=== PATIENT | female | born 1965 | race Caucasian/White ===

== ENCOUNTER 2020-07-27 02:20 | Outpatient (CLI) | payer OTHER, SELFPAY ==
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
--- OUTSIDE RECORDS SUMMARY | 2020-07-27 02:22 | XMS_ITS ---
:1965 External Reference #:[id number] Author Care Team Providers Name Role Phone Gutierrez Primary Care Provider Unavailable Allergies None recorded. Medications Name Status Start Date Stop Date ? ? azithromycin 250 mg tablet Active ? Not a vailable Problems Name Status Onset Date Source ? Hyperlipidemia Active 07/23/2020 ? Anxiety Active 07/23/2020 ? Carpal Tunnel Syndrome Active 07/23/2020 ? Fatigue Active 07/23/2020 ? Tachycardia Active 07/23/2020 ? Palpitations Active 07/23/2020 ? On Examination - Carotid Bruit Active 07/23/2020 ? Hyperlipidemia Screening Active 07/23/2020 ? Procedures Date Name Performed by ? 07/21/2020 US, Coronary Artery Xray [facility] [address] [place], [place] [address] (Work Place) 07/21/2020 Electrocardiogram Xray [facility] [address] [place], [place] [address] (Work Place) Results Lab Results None recorded. Past Encounters 07/21/2020 Fatigue; Palpitations; Hyperlipidemia; H yperlipidemia Screening; On Examination - Carotid Bruit; Tachycardia; Anxiety Mora Whitley, [place]: [address] [place] [address], Ph. [phone] Social History None recorded. Vaccine List None recorded. Plan of Care Patient Instructions 1. vitex blend- blk cohmarietta sheeba, le jaun horne leonalex cadiaca- dong quai 2. complete multi 2 cap 2xday 3. [place] Hormone- follow- instructions- carefully 4. MEgasporebiotic follow instructions o n bottle- 5. Call for appt at laba nd try to coord inate for ECG and carotid Ultrasound appts Reminders Provider Appointments None recorded. ? ? Lab None recorded. ? ? Referral None recorded. ? ? Procedures None recorded. ? ? Surgeries None recorded. ? ? Imaging None recorded. ? ? Vitals Height Weight BMI Blood Pressure 5 ft 3 in 181 lbs 16 oz 32.2 kg/m2 146/80 mm[Hg]
[2020-07-27 09:17] LABS: Absolute Basophil Count 0.01 10^3/uL (0.0-0.2); Absolute Eosinophil Count 0.07 10^3/uL (0.0-0.7); Absolute Lymphocyte Count 1.69 10^3/uL (1.2-3.4); Absolute Monocyte Count 0.27 10^3/uL (0.1-0.8); Absolute Neutrophil Count 1.07 10^3/uL (1.2-6.7); Basophils % 0.3; Eosinophils % 2.3; HCT 40.9 % (36.0-46.0); HGB 13.7 g/dL (11.2-15.7); Lymphocytes % 54.3; MCH 27.7 pg (27.0-33.0); MCHC 33.5 % (32.0-36.0); MCV 82.8 fL (80-95); MPV 9.8 fL (8.0-11.0); Monocytes % 8.7; Neutrophils % 34.4; Nucleated RBC 0 %; Platelet Count 218 10^3/uL (130-400); RBC 4.94 10^6/uL (3.93-5.22); RDW 11.6 % (11.7-14.6); RDW-SD 34.9 fL; WBC 3.11 10^3/uL (4.4-10.8)
[2020-07-27 09:48] LABS: Iron 77 ug/dL (50-170); Total Iron Binding Capacity 293 ug/dL (250-450); Transferrin Sat 26 % (15-50)
[2020-07-27 09:52] LABS: Hemoglobin A1C 5.4 % (<5.7)
[2020-07-27 10:15] LABS: ALT 66 U/L (14-59); AST 25 U/L (15-37); Albumin 3.7 g/dL (3.4-5.0); Alkaline Phosphatase 62 U/L (46-116); Anion Gap 8.2 mmol/L (3-11); BUN 10 mg/dL (7-18); Bilirubin, Total 0.5 mg/dL (0.2-1.0); CO2 28.8 mmol/L (21.0-32.0); CREATININE 0.57 mg/dL (0.55-1.02); Calcium 9.7 mg/dL (8.5-10.1); Calculated LDL 96 mg/dL (<100); Chloride 106 mmol/L (98-107); Cholesterol 171 mg/dL (<200); Ferritin 121 ng/mL (8-252); Glucose 116 mg/dL (74-106); HDL Cholesterol 64 mg/dL (40-60); Magnesium 1.6 mg/dL (1.8-2.4); Potassium 3.9 mmol/L (3.5-5.1); Sodium 143 mmol/L (136-145); Total Protein 6.6 g/dL (6.4-8.2); Triglyceride 58 mg/dL (<150); Vitamin B12 473 pg/mL (193-986)
[2020-07-27 10:28] LABS: Folate > 20.0 ng/mL (8.6-20.0); TSH < 0.01 uIU/mL (0.36-3.74)
[2020-07-27 10:47] LABS: FREE T4 3.79 ng/dL (0.76-1.46)
[2020-07-27 17:10] LABS: T3,Free 22.7 pg/mL (2.8-5.3)
[2020-07-27 17:20] LABS: CRP, High Sensitivity 0.35 mg/L (See Note)
[2020-07-27 17:27] LABS: T3, Total 484 ng/dL (97-169)
[2020-07-27 18:43] LABS: Thyroglobulin Antibody >500 U/mL (<=60); Thyroperoxidase Antibody >1300 U/mL (<=60)
[2020-07-28 15:21] LABS: Lipoprotein (a) <6 mg/dL (<=30)
== END 2020-07-27 02:40 ==
PROVIDERS: PCP Naturopath; Visit Provider Naturopath
DX: R53.83 Other fatigue (principal); R00.2 Palpitations; Z13.220 Encounter for screening for lipoid disorders; Z13.1 Encounter for screening for diabetes mellitus
CPT/HCPCS: 36415; 80053; 80061; 83090; 83695; 86141; 82607; 82728; 82746; 83036; 83540; 83550; 83735; 84439; 84443; 84480; 84481; 85025; 86140; 86376; 86800

== ENCOUNTER 2020-07-27 03:16 | Outpatient (CLI) | payer OTHER, SELFPAY ==
--- NOTE | 2020-07-27 09:00 | RT.EKG_ITS ---
APPROVED REPORT Exam: Resting ECG Patient Location: O HR:128 bpm ECG Measurements Heart Rate 128 AXIS CO 122 P 70 QRSd 81 QRS -20 QT 305 T 61 QTc 446 Conclusion Sinus tachycardia...rate> 99 Probable left atrial enlargement...P >50mS, <-0.10mV V1 Probable left ventricular hypertrophy...multiple LVH criteria
== END 2020-07-27 03:36 ==
PROVIDERS: PCP Naturopath; Visit Provider Naturopath
DX: R00.0 Tachycardia, unspecified (principal)
CPT/HCPCS: 93005; 93010

== ENCOUNTER 2020-08-04 01:14 | Outpatient (CLI) | payer OTHER, SELFPAY ==
--- NOTE | 2020-08-04 | DI.US_ITS ---
EXAM: US CAROTID CLINICAL HISTORY: CAROTID BRUIT,R09.89. TECHNIQUE: Ultrasound carotids performed using grayscale, color-flow, and spectral Doppler imaging. COMPARISON: No exams were available for comparison FINDINGS: RIGHT CAROTID ARTERY: Plaque: Minimal. Velocity elevation: See below LEFT CAROTID ARTERY: Plaque: Minimal. Velocity elevation: See below VERTEBRAL ARTERIES: Antegrade flow. Measurements: R Bulb: 56.2cm/s PS / 18.2cm/s ED R CCA: 155cm/s PS / 60.2cm/s ED R ECA: PS / ED R ICA Prox: 135.1cm/s PS /42.6cm/s ED R ICA Mid: 112.15cm/s PS / 52.8cm/s ED R ICA Distal: 79.8cm/s PS /30.1cm/s ED R Vert: 61.7cm/s PS / 19.9cm/s ED R SVR: 0.87 R DVR: 0.71 L Bulb: 138.8cm/s PS /53.5cm/s ED L CCA: 149.2cm/s PS / 60.2cm/s ED L ECA: PS / ED L ICA Prox:170.6cm/s PS / 46.3cm/s ED L ICA Mid: 138.23cm/sPS / 56.8cm/s ED L ICA Distal: 144.6cm/s PS / 69.4cm/s ED L Vert: 59.5cm/s PS / 21.5cm/s ED L SVR: 1.14 L DVR: 0.77 IMPRESSION: There is minimal plaque. The the internal carotid arteries are tortuous, likely causing the velocity elevations.. Criteria for Carotid Stenosis: Normal: ICA PSV <125 cm/s no plaque or intimal thickening is visible. <50% stenosis: ICA PSV <125 cm/s and plaque or intimal thickening is visible. 50-69% stenosis: ICA PSV is 125-250 cm/s and plaque is visible. >70% stenosis to near occlusion: ICA PSV >250 cm/s with visible plaque and luminal narrowing. DATA REPOSITORY:
== END 2020-08-04 01:34 ==
PROVIDERS: PCP Naturopath; Visit Provider Naturopath
DX: R09.89 Other specified symptoms and signs involving the circulatory and respiratory systems (principal)
CPT/HCPCS: 93880

== ENCOUNTER 2020-08-06 13:44 | Emergency (ER) | payer OTHER, SELFPAY ==
--- NOTE | 2020-08-06 13:45 | RT.EKG_ITS ---
APPROVED REPORT Exam: Resting ECG Patient Location: E HR:120 bpm ECG Measurements Heart Rate 120 AXIS MO 141 P 62 QRSd 84 QRS -14 QT 318 T 38 QTc 450 Conclusion Sinus tachycardia...rate> 99
[2020-08-06 13:48] VITALS: BP 170/91; PULSE 126; RESP 18; TEMP 36.8; O2SAT 99
[2020-08-06 14:18] LABS: Absolute Basophil Count 0.01 10^3/uL (0.0-0.2); Absolute Eosinophil Count 0.11 10^3/uL (0.0-0.7); Absolute Lymphocyte Count 2.03 10^3/uL (1.2-3.4); Absolute Monocyte Count 0.29 10^3/uL (0.1-0.8); Absolute Neutrophil Count 1.11 10^3/uL (1.2-6.7); Basophils % 0.3; Eosinophils % 3.1; HCT 41.4 % (36.0-46.0); HGB 13.6 g/dL (11.2-15.7); Lymphocytes % 57.2; MCH 27.6 pg (27.0-33.0); MCHC 32.9 % (32.0-36.0); MPV 9.5 fL (8.0-11.0); Monocytes % 8.2; Neutrophils % 31.2; Nucleated RBC 0 %; Platelet Count 188 10^3/uL (130-400); RBC 4.93 10^6/uL (3.93-5.22); RDW 11.4 % (11.7-14.6); RDW-SD 34.8 fL; WBC 3.55 10^3/uL (4.4-10.8)
[2020-08-06] MEDS: Normal Saline 1,000 ML 1000 ML IV (14:30)
[2020-08-06 14:39] LABS: ALT 128 U/L (14-59); AST 41 U/L (15-37); Albumin 3.5 g/dL (3.4-5.0); Alkaline Phosphatase 70 U/L (46-116); Anion Gap 8.9 mmol/L (3-11); BUN 8 mg/dL (7-18); Bilirubin, Total 0.3 mg/dL (0.2-1.0); CO2 28.1 mmol/L (21.0-32.0); CREATININE 0.56 mg/dL (0.55-1.02); Calcium 9.2 mg/dL (8.5-10.1); Chloride 105 mmol/L (98-107); Glucose 116 mg/dL (74-106); Magnesium 1.7 mg/dL (1.8-2.4); Potassium 3.7 mmol/L (3.5-5.1); Sodium 142 mmol/L (136-145); Total Protein 6.6 g/dL (6.4-8.2)
[2020-08-06 14:42] LABS: Troponin I < 0.05 ng/mL (<0.06)
[2020-08-06 14:43] VITALS: RESP 17
[2020-08-06 14:46] LABS: TSH (W/Ref FT4) < 0.01 uIU/mL (0.36-3.74)
[2020-08-06 15:02] LABS: FREE T4 2.44 ng/dL (0.76-1.46)
--- NOTE | 2020-08-06 15:05 | ED.GENADUL_ITS ---
Discharge Plan Disposition Patient Disposition: HOME Condition: Stable Discharge Details Clinical Impression: Hyperthyroidism Primary Care Provider: Mora Whitley ED Provider: Fernando Kathleen Home Meds and New Rx's Prescriptions: New methimazole 10 mg tablet 10 mg PO DAILY Qty: 30 RF: 0 metoprolol succinate 25 mg tablet extended release 24 hr 25 mg PO DAILY Qty: 30 RF: 0 Continued ascorbic acid (vitamin C) [Vitamin C] 500 mg Tablet 500 mg PO DAILY RF: 0 ergocalciferol (vitamin D2) 1,000 unit Capsule 2,000 unit PO DAILY RF: 0 Sporbiotic 1 ea PO DAILY RF: 0 omega-3 fatty acids Capsule 1 cap PO DAILY RF: 0 Discharge Instructions Instructions: Methimazole (By mouth), Hyperthyroidism (ED) Additional Instructions: Please take methimazole and metoprolol as prescribed. Please follow-up with endocrinology. Please contact your primary care physician to arrange follow-up. Return to the ER immediately for any worsening or new concerning symptoms including fever, sore throat, or symptoms of infection. Referrals: Mora Whitley [Primary Care Provider] - Medical Decision Making 55-year-old female here with 3 months of intermittent palpitations, found to have hyperthyroidism by naturopathic doctor, here with tachycardia and a heart rate in the 110s-120s, normotensive. Labs to confirm hyperthyroidism reviewed and patient has low TSH and elevated free T4 of 2.44. I reviewed past medical record and patient had an elevated free T3 of 22.7, total T3 of 44 on 07/27/20, thyroperoxidase antibody greater than 1300, thyroglobulin antibody greater than 500. I called and spoke with building construction estimator data entry supervisor at [facility], discussed ED presentation and course, discussed labs today and recent outpatient labs, she recommended starting methimazole 10 mg daily and metoprolol 25 mg XR daily and have her follow-up in clinic as scheduled. HPI General Mode of arrival: ambulatory . Date/Time Provider Initiated Documentation: 08/06/20 13:47 . Limitations to Documentation: no limitations . Information obtained by: patient . HPI Narrative: 55-year-old female with h istory of anxiety disorder, recently experiencing palpitations over the past few months and recently diagnosed by her research associate quality control qc with hyperthyroidism. Patient has follow-up scheduled with endocrinology in 2 weeks at [facility]. She presents today at the prompting of her research associate quality control qc questioning the need for pharmacologic treatment. Her research associate quality control qc is unable to prescribe medications. Patient denies chest pain or shortness of breath. Her palpitations are moderate, intermittent but persistent over the past few months and feel like her heart is racing. Related Data Home Medications Medication Instructions Recorded Confirmed Sporbiotic 1 ea PO DAILY 08/06/20 08/06/20 ascorbic acid (vitamin C) [Vitamin 500 mg PO DAILY 08/06/20 08/06/20 C] ergocalciferol (vitamin D2) 2,000 unit PO DAILY 08/06/20 08/06/20 methimazole 10 mg PO DAILY #30 tab 08/06/20 metoprolol succinate 25 mg PO DAILY #30 tab 08/06/20 omega-3 fatty acids 1 cap PO DAILY 08/06/20 08/06/20 Previous Rx's Medication Instructions Recorded methimazole 10 mg PO DAILY #30 tab 08/06/20 metoprolol succinate 25 mg PO DAILY #30 tab 08/06/20 Allergies Allergy/AdvReac Type Severity Reaction Status Date / Time cephalexin [From Keflex] AdvReac Intermediate feels like Unverified 08/06/20 13:53 head cold/allergy codeine AdvReac Intermediate passes out Unverified 08/06/20 13:53 General Stated Complaint: GenMedical RIK: 3 Review of Systems All systems reviewed & are unremarkable except as noted in HPI and below Constitutional Constitutional: Denies fever(s) and Denies headache(s) ENT Ears, Nose, Mouth, and Throat: Denies headache(s) Cardiovascular Cardiovascular: Denies chest pain and Denies dyspnea Respiratory Respiratory: Reports as per HPI and Denies dyspnea Gastrointestinal Gastrointestinal: Denies nausea and Denies vomiting Neurologic Neurologic: Denies headache(s) [facility] Social History Smoking/Tobacco Use Status: Former Tobacco Use Smoking risk assessment performed?: Yes Alcohol Intake: current Alcohol Intake frequency: a few times a week Substance use type: does not use Details: cigs in high school Do you feel safe at home: Yes Do you feel safe in your relationship?: Yes Exam Const General: cooperative and no acute distress HENMT Head: normocephalic Mouth: moist mucous membranes Eyes Conjunctivae: normal conjunctivae Sclera: normal sclerae Neck Neck: trachea midline and supple Thyroid: diffusely enlarged, no masses, nontender and no warm Resp Auscultation: clear to auscultation bilaterally, no rales, no rhonchi and no wheezes Cardio Rate: tachycardic Rhythm: regular rhythm GI Palpation: soft, not firm, no guarding, no masses, not rigid and nontender Skin General skin exam: no rashes or lesions noted Neuro General: patient alert, patient awake, patient oriented x3 and tone normal Extrem General: no edema Psych Appearance: grossly normal Mental Status: mental status grossly normal Speech and Movement: speech and movement normal Course Vital Signs Vital signs: Vital Signs Temperature 36.8 C 08/06/20 13:48 Pulse 126 H 08/06/20 13:48 Respiratory Rate 18 08/06/20 13:48 Blood Pressure 170/91 H 08/06/20 13:48 Pulse Oximetry 99 08/06/20 13:48 Temperature 36.8 C 08/06/20 13:48 Temperature Source Skin 08/06/20 13:48 Pulse 126 H 08/06/20 13:48 Respiratory Rate 17 08/06/20 14:43 Respiratory Effort Non-Labored 08/06/20 14:43 Respiratory Depth Normal 08/06/20 14:43 Respiratory Pattern Normal 08/06/20 14:43 Blood Pressure 170/91 H 08/06/20 13:48 Blood Pressure Position Sitting 08/06/20 13:48 Pulse Oximetry 99 08/06/20 13:48 Oxygen Delivery Method Room Air 08/06/20 13:48 Oxygen Flow Rate 0 08/06/20 13:48 Pain Level 0 08/06/20 13:48 Lab/Test Results Lab/Test Results: Laboratory Tests Range/Units 08/06/20 08/06/20 14:05 14:05 WBC (4.4-10.8) 10^3/uL 3.55 L RBC (3.93-5.22) 10^6/uL 4.93 Hgb (11.2-15.7) g/dL 13.6 Hct (36.0-46.0) % 41.4 MCV (80-95) fL 84.0 MCH (27.0-33.0) pg 27.6 MCHC (32.0-36.0) % 32.9 RDW (11.7-14.6) % 11.4 L Plt Count (130-400) 10^3/uL 188 MPV (8.0-11.0) fL 9.5 Immature Gran % 0.0 Neutrophils % 31.2 Lymphocytes % 57.2 Monocytes % 8.2 Eosinophils % 3.1 Basophils % 0.3 Nucleated RBC % % 0 Absolute Neutrophils (1.2-6.7) 10^3/uL 1.11 L Absolute Lymphocytes (1.2-3.4) 10^3/uL 2.03 Absolute Monocytes (0.1-0.8) 10^3/uL 0.29 Absolute Eosinophils (0.0-0.7) 10^3/uL 0.11 Absolute Basophils (0.0-0.2) 10^3/uL 0.01 Sodium (136-145) mmol/L 142 Potassium (3.5-5.1) mmol/L 3.7 Chloride (98-107) mmol/L 105 Carbon Dioxide (21.0-32.0) mmol/L 28.1 Anion Gap (3-11) mmol/L 8.9 BUN (7-18) mg/dL 8 Creatinine (0.55-1.02) mg/dL 0.56 Estimated GFR/1.73 m2 (mL/min/1.73m2) >= 60.00 Glucose (74-106) mg/dL 116 H Calcium (8.5-10.1) mg/dL 9.2 Magnesium (1.8-2.4) mg/dL 1.7 L Total Bilirubin (0.2-1.0) mg/dL 0.3 AST (15-37) U/L 41 H ALT (14-59) U/L 128 H Alkaline Phosphatase (46-116) U/L 70 Troponin I (<0.06) ng/mL < 0.05 Total Protein (6.4-8.2) g/dL 6.6 Albumin (3.4-5.0) g/dL 3.5 TSH (0.36-3.74) uIU/mL < 0.01 L Free T4 (0.76-1.46) ng/dL 2.44 H
[2020-08-06] MEDS: Metoprolol CR 25 MG TABCR PO (15:49)
[2020-08-06] MEDS: methIMAzole 5 MG TAB 10 MG PO (15:49)
[2020-08-11 10:01] LABS: Thyrotropin Receptor Ab 26 IU/L
== END 2020-08-06 15:47 | disposition home or self-care (01) ==
LOC: ER 17:26
PROVIDERS: Emergency Provider Student in an Organized Health Care Education/Training Program; PCP Naturopath
DX: E03.8 Other specified hypothyroidism (principal)
CPT/HCPCS: 36415; 80053; 93005; 96360; 99284; 83735; 84235; 84439; 84443; 84484; 85025; 93010

== ENCOUNTER 2020-08-17 01:13 | Outpatient (CLI) | payer OTHER, SELFPAY ==
--- NOTE | 2020-08-17 | DI.US_ITS ---
EXAM: US THYROID CLINICAL HISTORY: HYPERTHYROIDISM,E05.90,? GRAVES. TECHNIQUE: Ultrasound thyroid performed using standard protocol. COMPARISON: US US CAROTID from 08/04/2020 FINDINGS: Both thyroid lobes are slightly enlarged, as is the isthmus. Glandular parenchyma pattern is heterog eneous throughout both lobes. The right thyroid lobe measures 0.5 centimetres AP by 0.3 centimeters wide by 5.3 centimeters cephalo caudal. The left thyroid lobe measures 2.4 centimeters AP x 2.3 centimeters wide by 5.1 centimetres cephaloca udal. In the right lobe there is a solid nodule located inferiorly measuring 8 x 9 x 9 millimeters, somewha t vascular. Taller than wider. Isoechoic to the surrounding parenchyma. Smooth margins and no echo genic foci therein = 6 total points/TR 4 Higher up in the right lobe there is a smaller solid nodule measuring 4 x 3 x 4 millimeter At the mid level of the right lobe there is a macrocalcification measuring 2 x 1 x 2 millimeters. In the left lobe there is inferiorly located solid nodule measuring 1.5 x 1.5 x 1.3 cm. This nodule appears hyperechoic. It is taller than wider. There is a central area which is isoechoi c to the gland. This nodule exhibits smooth margins and does not contain echogenic foci. Total points =6/TR4 IMPRESSION: Slightly enlarged and heterogeneous thyroid lobes which are vascular and contain nodules as described above. There nodules in the inferior aspect of both lobes which are TiRads 4 require follow-up. Th e nodule in the left lung base measures 1.5 centimetres and should probably undergo FNA. DATA REPOSITORY:
== END 2020-08-17 01:33 ==
PROVIDERS: PCP Naturopath; Visit Provider Naturopath
DX: E05.20 Thyrotoxicosis with toxic multinodular goiter without thyrotoxic crisis or storm (principal); R91.1 Solitary pulmonary nodule
CPT/HCPCS: 76536

== ENCOUNTER 2020-10-08 04:07 | Outpatient (CLI) | payer OTHER, SELFPAY ==
[2020-10-08 11:19] LABS: TSH < 0.01 uIU/mL (0.36-3.74)
[2020-10-08 11:36] LABS: FREE T4 0.97 ng/dL (0.76-1.46)
== END 2020-10-08 04:08 | disposition home or self-care (01) ==
PROVIDERS: PCP Naturopath; Visit Provider Internal Medicine Endocrinology, Diabetes & Metabolism
DX: E05.00 Thyrotoxicosis with diffuse goiter without thyrotoxic crisis or storm (principal)
CPT/HCPCS: 36415; 80053; 80061; 83090; 83695; 86141; 82607; 82728; 82746; 83036; 83540; 83550; 83735; 84439; 84443; 84480; 84481; 85025; 86140; 86376; 86800

== ENCOUNTER 2020-11-03 03:57 | Outpatient (CLI) | payer OTHER, SELFPAY ==
[2020-11-03 11:05] LABS: TSH 7.45 uIU/mL (0.36-3.74)
[2020-11-03 11:23] LABS: FREE T4 0.45 ng/dL (0.76-1.46)
== END 2020-11-03 03:58 | disposition home or self-care (01) ==
LOC: LBO 03:57
PROVIDERS: PCP Naturopath; Visit Provider Internal Medicine Endocrinology, Diabetes & Metabolism
DX: E05.00 Thyrotoxicosis with diffuse goiter without thyrotoxic crisis or storm (principal)
CPT/HCPCS: 36415; 84439; 84443

== ENCOUNTER 2022-12-15 02:32 | Outpatient (CLI) | payer OTHER, SELFPAY ==
[2022-12-15 15:44] LABS: FREE T4 0.88 ng/dL (0.76-1.46); TSH 1.48 uIU/mL (0.36-3.74)
== END 2022-12-15 02:33 | disposition home or self-care (01) ==
LOC: LBO 02:32
PROVIDERS: PCP Naturopath
DX: E89.0 Postprocedural hypothyroidism (principal)
CPT/HCPCS: 36415; 84439; 84443

== ENCOUNTER 2023-12-08 05:35 | Outpatient (CLI) | payer OTHER, SELFPAY ==
[2023-12-08 12:43] LABS: FREE T4 0.94 ng/dL (0.76-1.46); TSH 0.98 uIU/Ml (0.36-3.74)
== END 2023-12-08 05:36 | disposition home or self-care (01) ==
PROVIDERS: PCP Naturopath; Visit Provider Internal Medicine Endocrinology, Diabetes & Metabolism
DX: E89.0 Postprocedural hypothyroidism (principal)
CPT/HCPCS: 36415; 84439; 84443

== ENCOUNTER 2024-09-27 00:39 | Outpatient (CLI) | payer OTHER, SELFPAY ==
[2024-09-27 09:45] LABS: FREE T4 1.04 ng/dL (0.76-1.46); TSH 2.18 uIU/mL (0.36-3.74)
== END 2024-09-27 00:40 | disposition home or self-care (01) ==
PROVIDERS: PCP Naturopath; Visit Provider Internal Medicine
DX: E89.0 Postprocedural hypothyroidism (principal)
CPT/HCPCS: 36415; 84439; 84443